=== PATIENT | female | born 1980 | race Caucasian/White ===

== ENCOUNTER 2017-03-30 19:52 | Emergency (ER) | payer BC ==
[2017-03-30 20:04] VITALS: BP 168/112
[2017-03-30] MEDS ORDERED: Ibuprofen 600 MG Tab PO ONE (20:27)
--- NOTE | 2017-03-30 20:39 | EDM.PDOC ---
ED HPI GENERAL MEDICAL PROBLEM - General Chief Complaint: Lower Extremity Injury/Pain Stated Complaint: POSS BROKEN ANKLE, [id number] Time Seen by Provider: 03/30/17 19:58 Source of Information: Reports: Patient History Limitations: Reports: No Limitations - History of Present Illness INITIAL COMMENTS - FREE TEXT/NARRATIVE: ED per wheelchair with c/o severe pain to left ankle, playing softball and triped running and rolled left ankle. Left Ankle Pain Score (Numeric/FACES): 9 - Related Data Allergies Allergy/AdvReac Type Severity Reaction Status Date / Time No Known Allergies Allergy Verified 03/30/17 20:01 Home Meds: Home Meds . 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 - Infectious Disease History Infectious Disease History: Reports: Chicken Pox - Past Surgical History Female Surgical History: Reports: Other (See Below) Social & Family History - Tobacco Use Smoking Status *Q: Current Every Day Smoker Years of Tobacco use: 17 Packs/Tins Daily: 0.5 Used Tobacco, but Quit: No Second Hand Smoke Exposure: Yes - Caffeine Use Caffeine Use: Reports: Coffee, Soda - Alcohol Use Days Per Week of Alcohol Use: 4 Number of Drinks Per Day: 1 Total Drinks Per Week: 4 Date of Last Drink: 03/29/17 - Recreational Drug Use Recreational Drug Use: No Review of Systems - Review of Systems Review Of Systems: ROS reveals no pertinent complaints other than HPI. ED EXAM, GENERAL - Physical Exam Exam: See Below Exam Limited By: No Limitations General Appearance: Alert, Moderate Distress Throat/Mouth: Normal Voice Respiratory/Chest: No Respiratory Distress Cardiovascular: Normal Peripheral Pulses, Regular Rate, Rhythm Extremities: Limited Range of Motion, Other (left lateral ankle swollen limited ROM. No bruising. Increased pain with minimal movment) Course - Vital Signs Last Recorded V/S: Last Vital Signs Temp 97.3 F 03/30/17 20:02 Pulse 98 03/30/17 20:02 Resp 22 H 03/30/17 20:02 BP 168/112 H 03/30/17 20:02 Pulse Ox 99 03/30/17 20:02 - Orders/Labs/Meds Orders: Active Orders 24 hr Category Date Time Status Ankle Min 3V Lt [CR] Urgent Exams 03/30/17 19:57 Taken Meds: Medications Discontinued Medications Generic Name Dose Route Start Last Admin Trade Name Aly PRN Reason Stop Dose Admin Ibuprofen 600 mg 03/30/17 20:27 03/30/17 20:33 Motrin PO 03/30/17 20:28 600 mg ONETIME ONE Administration - Radiology Interpretation Free Text/Narrative:: xray left ankle negative Departure - Departure Time of Disposition: 20:33 Disposition: Home, Self-Care 01 Condition: Good Clinical Impression: Left ankle sprain Qualifiers: Encounter type: initial encounter Involved ligament of ankle: other ligament Qualified Code(s): S93.492A - Sprain of other ligament of left ankle, initial encounter - Discharge Information Instructions: Ankle Sprain, [id number] Forms: ED Department Discharge Additional Instructions: ice rest elevate extremity cam walker crutches weight bearing as tolerated recheck in clinic in 2 weeks alternate tylenol 650mg and ibuprofen 600mg every 4-6 hours as needed for discomfort - My Orders Last 24 Hours: My Active Orders 03/30/17 19:57 Ankle Min 3V Lt [CR] Urgent - Assessment/Plan Last 24 Hours: My Active Orders 03/30/17 19:57 Ankle Min 3V Lt [CR] Urgent
== END 2017-03-30 20:42 | disposition home or self-care (01) ==
LOC: DL.ED 19:52
DX: S93.492A Sprain of other ligament of left ankle, initial encounter (principal); I10 Essential (primary) hypertension; F17.210 Nicotine dependence, cigarettes, uncomplicated; X58.XXXA Exposure to other specified factors, initial encounter; Y93.64 Activity, baseball
CPT/HCPCS: 73610; 99283; A9270; 99282

== ENCOUNTER 2019-09-15 15:33 | Emergency (ER) | payer BC ==
[2019-09-15] MEDS ORDERED: Sodium Chloride 0.9% 10 ML Syringe FLUSH PRN (16:13)
[2019-09-15] MEDS ORDERED: Ondansetron 4 MG/2 ML SDV IV ONE (16:14)
[2019-09-15] MEDS ORDERED: Morphine 4 MG/ML Syringe IVPUSH ONE (16:15)
[2019-09-15 16:58] LABS: ANION GAP 15.7; CHLORIDE,CL 99 mmol/L (101-111); SODIUM,NA 135 mmol/L (135-145)
--- NOTE | 2019-09-15 17:09 | CR ---
EXAMINATION: Chest 2V SEX: Female AGE: 39 years CLINICAL HISTORY: 39-year-old female emergency department complaining of cough (dyspnea). INTERPRETATION: 1. Normal cardiac silhouette and bony thorax. Left-sided aortic arch. 2. No pulmonary vascular congestion, cephalization of vascular flow, alveolar edema or dependent pleural fluid accumulation. 3. No lung mass, hilar lymphadenopathy or focal lobar consolidation i.e. no infiltrate, atelectasis or collapse. 4. No peribronchial "cuffing" or air trapping. 5. No pneumothorax or pneumomediastinum. No free subdiaphragmatic air. CONCLUSION: Negative exam.
[2019-09-15] MEDS ORDERED: metroNIDAZOLE 250 MG Tab PO ONE (18:15)
--- NOTE | 2019-09-15 18:39 | EDM.PDOC ---
"Scribed by Laruen Solomon 09/15/19 [id number] for Dilan Saldana MD ED HPI GENERAL MEDICAL PROBLEM - General Chief Complaint: Respiratory Problem Stated Complaint: RIGHT SIDE SHARP PAIN RIBS. HURTS BREATHING Time Seen by Provider: 09/15/19 15:54 Source of Information: Reports: Patient, RN, RN Notes Reviewed History Limitations: Reports: No Limitations - History of Present Illness INITIAL COMMENTS - FREE TEXT/NARRATIVE: Patient presents to ER from clinic sent by Dr. Hung. Dr Hung states that patient is having RUQ abdomen & Rt lower chest pain. States that this increases with breathing and coughing. Patient is having elevated blood pressure today of 166/108. She states that she has been having a cough since the weekend, (5 days) . Today is when she began having pain. She has had elevated blood pressure before but not this high. She has been having a lot of increased stress. She has had yellow sputum with the cough. Denies shortness of breath, fever, chills , N/V, diarrhea, constipation, or unexplained wt loss. She admits to mild dysuria. Onset: Gradual Onset Date: 09/15/19 Duration: Constant, Getting Worse Location: Reports: Chest, Abdomen (right upper quadrant), Back Quality: Reports: Ache Severity: Severe Improves with: Reports: None Worsens with: Reports: Breathing, Movement Associated Symptoms: Reports: No Other Symptoms Right Lower Chest Pain Score (Numeric/FACES): 8 - Related Data Allergies Allergy/AdvReac Type Severity Reaction Status Date / Time No Known Allergies Allergy Verified 09/15/19 15:51 Home Meds: Home Meds . 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 ED EXAM, GENERAL - Physical Exam Exam: See Below Exam Limited By: No Limitations General Appearance: Alert, WD/WN, No Apparent Distress Eye Exam: Bilateral Eye: Normal Inspection Nose: Normal Inspection Throat/Mouth: Normal Inspection Head: Atraumatic, Normocephalic Neck: Normal Inspection Respiratory/Chest: No Respiratory Distress, Lungs Clear, Normal Breath Sounds, No Accessory Muscle Use, Other (Tender at Rt anterior lower chest wall/ribs) Cardiovascular: Normal Peripheral Pulses, Regular Rate, Rhythm, No Edema, No Gallop, No JVD, No Murmur, No Rub GI/Abdominal: Normal Bowel Sounds, Soft, No Organomegaly, No Distention, No Abnormal Bruit, No Mass, Pelvis Stable, Tender (RUQ, and RLQ). No: Guarding, Rigid, Rebound (Female) Exam: Deferred Rectal (Female) Exam: Deferred Back Exam: Full Range of Motion, CVA Tenderness (R). No: CVA Tenderness (L), Paraspinal Tenderness, Vertebral Tenderness Extremities: Normal Inspection, Normal Range of Motion, Non-Tender, Normal Capillary Refill, No Pedal Edema Neurological: Alert, Oriented, CN II-XII Intact, Normal Cognition, Normal Gait, Normal Reflexes, No Motor/Sensory Deficits Psychiatric: Anxious Skin Exam: Warm, Dry, Intact, Normal Color, No Rash EKG INTERPRETATION EKG Date: 09/15/19 Time: 16:15 Rhythm: Other (sinus rhythm) Rate (Beats/Min): 92 Opal: Normal P-Wave: Present (biatrial abnormalities) QRS: Normal ST-T: Normal QT: Normal Course - Vital Signs Last Recorded V/S: Last Vital Signs Temp 98.7 F 09/15/19 15:44 Pulse 98 09/15/19 15:44 Resp 20 09/15/19 15:44 BP 159/114 H 09/15/19 15:44 Pulse Ox 99 09/15/19 15:44 - Orders/Labs/Meds Orders: Active Orders 24 hr Category Date Time Status EKG 12 Lead [EKG Documentation Completion] [RC] STAT Care 09/15/19 16:08 Active Peripheral IV Care [RC] . DIRECTED Care 09/15/19 16:14 Active Abdomen Pelvis wo Cont [CT] Stat Exams 09/15/19 17:32 Ordered CULTURE BLOOD [BC] Stat Lab 09/15/19 16:30 Received CULTURE BLOOD [BC] Stat Lab 09/15/19 17:00 Received CULTURE URINE [RM] Stat Lab 09/15/19 17:30 Received Sodium Chloride 0.9% [Saline Flush] Med 09/15/19 16:13 Active 10 ml FLUSH ASDIRECTED PRN cefTRIAXone [Rocephin] 2,000 mg Med 09/15/19 18:15 Active Sodium Chloride 0.9% [Normal Saline] 100 ml IV ONETIME Blood Culture x2 Reflex Set [OM.PC] Stat Oth 09/15/19 16:14 Ordered Peripheral IV Insertion Adult [OM.PC] Stat Oth 09/15/19 16:13 Ordered Medication Orders Ceftriaxone Sodium 2,000 mg/ (Sodium Chloride) 100 mls @ 200 mls/hr IV ONETIME ONE Stop: 09/15/19 18:44 Last Admin: 09/15/19 18:30 Dose: 200 mls/hr Sodium Chloride (Saline Flush) 10 ml FLUSH ASDIRECTED PRN PRN Reason: Keep Vein Open Last Admin: 09/15/19 16:42 Dose: 10 ml Labs: Laboratory Tests 09/15/19 09/15/19 09/15/19 Range/Units 16:30 16:30 16:30 WBC 6.7 (5.0-10.0) 10^3/uL RBC 4.48 (4.2-5.4) 10^6/uL Hgb 14.8 (12.0-16.0) g/dL Hct 42.9 (37.0-47.0) % MCV 95.8 (80-100) fL MCH 33.0 (27.0-34.0) pg MCHC 34.5 (33.0-35.0) g/dL Plt Count 248 (150-450) 10^3/uL Neut % (Auto) 57.1 (42.2-75.2) % Lymph % (Auto) 32.3 (20.5-50.1) % [place] % (Auto) 8.1 H (2-8) % Eos % (Auto) 2.1 (1.0-3.0) % Baso % (Auto) 0.4 (0.0-1.0) % D-Dimer, Quantitative < 100 (0-400) ng/mL Sodium 135 (135-145) mmol/L Potassium 3.7 (3.6-5.0) mmol/L Chloride 99 L (101-111) mmol/L Carbon Dioxide 24.0 (21.0-31.0) mmol/L Anion Gap 15.7 BUN 15 (7-18) mg/dL Creatinine 0.9 (0.6-1.3) mg/dL Est Cr Clr Drug Dosing 73.90 mL/min Estimated GFR (MDRD) > 60 BUN/Creatinine Ratio 16.66 Glucose 85 (74-105) mg/dL Lactic Acid (0.5-2.2) mmol/L Calcium 9.4 (8.4-10.2) mg/dl Total Bilirubin 1.0 (0.2-1.0) mg/dL AST 39 (10-42) IU/L ALT 47 (10-60) IU/L Alkaline Phosphatase 75 (42-121) IU/L Troponin I < 0.02 (0.00-0.02) ng/ml Total Protein 7.3 (6.7-8.2) g/dl Albumin 4.5 (3.2-5.5) g/dl Globulin 2.8 Albumin/Globulin Ratio 1.61 Urine Color (YELLOW) Urine Appearance (CLEAR) Urine pH (5.0-9.0) Ur Specific [place] (1.005-1.030) Urine Protein (NEGATIVE) Urine Glucose (UA) (NEGATIVE) Urine Ketones (NEGATIVE) Urine Occult Blood (NEGATIVE) Urine Nitrite (NEGATIVE) Urine Bilirubin (NEGATIVE) Urine Urobilinogen (0.2-1.0) mg/dL Ur Leukocyte Esterase (NEGATIVE) Urine RBC /HPF Urine WBC (0-5/HPF) /HPF Ur Epithelial Cells (NOT SEEN) /HPF Amorphous Sediment (NOT SEEN) /HPF Urine Bacteria (0-FEW/HPF) /HPF Urine Mucus (NOT SEEN) /LPF Urine HCG, Qual 09/15/19 09/15/19 09/15/19 Range/Units 16:30 17:30 17:30 WBC (5.0-10.0) 10^3/uL RBC (4.2-5.4) 10^6/uL Hgb (12.0-16.0) g/dL Hct (37.0-47.0) % MCV (80-100) fL MCH (27.0-34.0) pg MCHC (33.0-35.0) g/dL Plt Count (150-450) 10^3/uL Neut % (Auto) (42.2-75.2) % Lymph % (Auto) (20.5-50.1) % [place] % (Auto) (2-8) % Eos % (Auto) (1.0-3.0) % Baso % (Auto) (0.0-1.0) % D-Dimer, Quantitative (0-400) ng/mL Sodium (135-145) mmol/L Potassium (3.6-5.0) mmol/L Chloride (101-111) mmol/L Carbon Dioxide (21.0-31.0) mmol/L Anion Gap BUN (7-18) mg/dL Creatinine (0.6-1.3) mg/dL Est Cr Clr Drug Dosing mL/min Estimated GFR (MDRD) BUN/Creatinine Ratio Glucose (74-105) mg/dL Lactic Acid 0.8 (0.5-2.2) mmol/L Calcium (8.4-10.2) mg/dl Total Bilirubin (0.2-1.0) mg/dL AST (10-42) IU/L ALT (10-60) IU/L Alkaline Phosphatase (42-121) IU/L Troponin I (0.00-0.02) ng/ml Total Protein (6.7-8.2) g/dl Albumin (3.2-5.5) g/dl Globulin Albumin/Globulin Ratio Urine Color Maryse (YELLOW) Urine Appearance Turbid (CLEAR) Urine pH 5.5 (5.0-9.0) Ur Specific [place] >= 1.030 (1.005-1.030) Urine Protein Trace H (NEGATIVE) Urine Glucose (UA) Negative (NEGATIVE) Urine Ketones Trace H (NEGATIVE) Urine Occult Blood Trace-intact H (NEGATIVE) Urine Nitrite Positive H (NEGATIVE) Urine Bilirubin Small H (NEGATIVE) Urine Urobilinogen 0.2 (0.2-1.0) mg/dL Ur Leukocyte Esterase Negative (NEGATIVE) Urine RBC 0-5 /HPF Urine WBC 0-5 (0-5/HPF) /HPF Ur Epithelial Cells Moderate H (NOT SEEN) /HPF Amorphous Sediment Few (NOT SEEN) /HPF Urine Bacteria Moderate H (0-FEW/HPF) /HPF Urine Mucus Few H (NOT SEEN) /LPF Urine HCG, Qual Negative Meds: Medications Generic Name Dose Route Start Last Admin Trade Name Freq PRN Reason Stop Dose Admin Ceftriaxone Sodium 2,000 mg/ 100 mls @ 200 mls/hr 09/15/19 18:15 09/15/19 18: 30 Sodium Chloride IV 09/15/19 18:44 200 mls/hr ONETIME ONE Administration Sodium Chloride 10 ml 09/15/19 16:13 09/15/19 16:42 Saline Flush FLUSH 10 ml ASDIRECTED PRN Administration Keep Vein Open Discontinued Medications Generic Name Dose Route Start Last Admin Trade Name Freq PRN Reason Stop Dose Admin Metronidazole 500 mg 09/15/19 18:15 09/15/19 18:29 Metronidazole PO 09/15/19 18:16 500 mg ONETIME ONE Administration Morphine Sulfate 4 mg 09/15/19 16:15 09/15/19 16:35 Morphine IVPUSH 09/15/19 16:16 4 mg ONETIME ONE Administration Ondansetron HCl 4 mg 09/15/19 16:14 09/15/19 16:31 Zofran IV 09/15/19 16:15 4 mg ONETIME ONE Administration - Radiology Interpretation Free Text/Narrative:: Chest x-ray: Negative exam. See rad report. [facility] Final Radiology Report Call: [phone] assistance Online chat: [email or web address] Name: RHEA PARRA Age: 39Years F Date: 09/15/2019 SSN: -- : [id number] Study: CT ABDOMEN/PELVIS WO Requesting Physician: DILAN SALDANA Images: [id number] Addl Studies: Provided Clinical History: Contrast: Without Contrast Medium: Contrast Amount: Contrast Method: Page 1 of 2 PROCEDURE INFORMATION: Exam: CT Abdomen And Pelvis Without Contrast Exam date and time: 09/15/2019 5:59 PM Age: 39 years old Clinical history: Other: Ruq abd pain, RT flank pain, hematuria, ? kidney stone TECHNIQUE: Imaging protocol: Computed tomography of the abdomen and pelvis without contrast. Radiation optimization: All CT scans at this facility use at least one of these dose optimization techniques: automated exposure control; mA and/or kV adjustment per patient size (includes targeted exams where dose is matched to clinical indication); or iterative reconstruction. COMPARISON: [facility] + TRANSVAG 07/12/2013 5:06 PM FINDINGS: Liver: There is fatty infiltration along the falciform ligament. . No mass. Gallbladder and bile ducts: Normal. No calcified stones. No ductal dilation. Pancreas: Normal. No ductal dilation. Spleen: Normal. No splenomegaly. Adrenals: Normal. No mass. Kidneys and ureters: Normal. No hydronephrosis. Stomach and bowel: Unremarkable. No obstruction. No mucosal thickening. Appendix: No evidence of appendicitis. Intraperitoneal space: Unremarkable. Vasculature: Unremarkable. No abdominal aortic aneurysm. Lymph nodes: Unremarkable. No enlarged lymph nodes. Bladder: Unremarkable as visualized. RHEA PARRA | Final Radiology Report CONFIDENTIALITY STATEMENT This report is intended only for use by the referring physician, and only in accordance with law. If you received this in error, call [phone]. Page 2 of 2 Reproductive: There is a cystic lesion in the posterior right adnexa with possible thickened septae, measuring 5.5 x 5.4 cm. Bones/joints: Unremarkable. No acute fracture. Soft tissues: Unremarkable. IMPRESSION: Complex 5.5 cm right adnexal cystic lesion. Pelvic ultrasound is advised to further characterize. Considerations include complex cyst versus cystic neoplasm. Thank you for allowing us to participate in the care of your patient. Dictated and Authenticated by: Fredi Silva MD 09/15/2019 6:23 PM Central Time ([place] & [place]) - Re-Assessments/Exams Free Text/Narrative Re-Assessment/Exam: 09/15/19 18:44 Pt informed of the exam findings, lab results, and imaging reports. Pt prefers to f/u with Dr. Bryan. I called Dr. Bryan to review the case and CT Abd/ Pelvis report. Dr. Bryan agrees to f/u in clinic next week with the pt to work up the right adnexal mass. Pt agrees to call Dr. Interiano's nurse Wednesday morning, 09/18/19 to schedule the appointment. Departure - Departure Time of Disposition: 18:52 Disposition: Home, Self-Care 01 Condition: Good Clinical Impression: Adnexal cyst, Bacterial vaginosis UTI (urinary tract infection) Qualifiers: Urinary tract infection type: acute pyelonephritis Qualified Code(s): N10 - Acute pyelonephritis - Discharge Information *PRESCRIPTION DRUG MONITORING PROGRAM REVIEWED*: No *COPY OF PRESCRIPTION DRUG MONITORING REPORT IN PATIENT CHILO: No Instructions: Urinary Tract Infection, Adult, Urinary Tract Infection, Adult, [id number], Ovarian Cyst, [id number] Forms: ED Department Discharge Additional Instructions: Rx: Flagyl (Metronidazole) 500mg *Do not consume any alcohol containing products while taking this medication. Rx: Cipro 500mg Rx: Hydrocodone APAP 5mg/325mg *Do not drive while under the influence of this medication. Rx: Zofran 4mg Call Dr. Bryan's nurse Wednesday morning between 8:00AM and 8:30AM to schedule an appointment. Return to ER if worse at any time. - My Orders Last 24 Hours: My Active Orders 09/15/19 16:08 EKG 12 Lead [EKG Documentation Completion] [RC] STAT 09/15/19 16:13 Sodium Chloride 0.9% [Saline Flush] 10 ml FLUSH ASDIRECTED PRN Peripheral IV Insertion Adult [OM.PC] Stat 09/15/19 16:14 Peripheral IV Care [RC] . DIRECTED Blood Culture x2 Reflex Set [OM.PC] Stat 09/15/19 16:30 CULTURE BLOOD [BC] Stat 09/15/19 17:00 CULTURE BLOOD [BC] Stat 09/15/19 17:30 CULTURE URINE [RM] Stat 09/15/19 17:32 Abdomen Pelvis wo Cont [CT] Stat 09/15/19 18:15 cefTRIAXone [Rocephin] 2,000 mg Sodium Chloride 0.9% [Normal Saline] 100 ml IV ONETIME - Assessment/Plan Last 24 Hours: My Active Orders 09/15/19 16:08 EKG 12 Lead [EKG Documentation Completion] [RC] STAT 09/15/19 16:13 Sodium Chloride 0.9% [Saline Flush] 10 ml FLUSH ASDIRECTED PRN Peripheral IV Insertion Adult [OM.PC] Stat 09/15/19 16:14 Peripheral IV Care [RC] . DIRECTED Blood Culture x2 Reflex Set [OM.PC] Stat 09/15/19 16:30 CULTURE BLOOD [BC] Stat 09/15/19 17:00 CULTURE BLOOD [BC] Stat 09/15/19 17:30 CULTURE URINE [RM] Stat 09/15/19 17:32 Abdomen Pelvis wo Cont [CT] Stat 09/15/19 18:15 cefTRIAXone [Rocephin] 2,000 mg Sodium Chloride 0.9% [Normal Saline] 100 ml IV ONETIME I have read and agree with the documentation that has been completed regarding this visit. By signing this record, I attest that the documentation was completed in my physical presence and is an accurate record of the encounter."
[2019-09-15 19:27] VITALS: BP 146/98; PULSE 91
== END 2019-09-15 19:28 | disposition home or self-care (01) ==
LOC: DL.ED 15:33
DX: N83.8 Other noninflammatory disorders of ovary, fallopian tube and broad ligament (principal); N10 Acute pyelonephritis; N76.0 Acute vaginitis; I10 Essential (primary) hypertension
CPT/HCPCS: 36415; 71046; 74176; 80053; 81001; 81025; 83605; 84484; 85025; 85379; 87040; 87086; 87088; 87186; 93005; 96365; 96375; 99285; A9270; J0696; J2270; J2405; J7050

== ENCOUNTER 2022-09-08 15:16 | Emergency (ER) | payer SELFPAY ==
[2022-09-08 15:34] VITALS: PULSE 112
[2022-09-08] MEDS ORDERED: Penicillin G Benzathine/Procaine 600-600 1.2 Millunits/2 ML Syringe IM ONE (15:52)
[2022-09-08] MEDS ORDERED: Lisinopril 20 MG Tab PO ONE (15:52)
[2022-09-08] MEDS ORDERED: Oxymetazoline 0.05% Nasal Spray 30 ML Bottle NAS ONE (15:52)
[2022-09-08 16:17] VITALS: BP 206/144
[2022-09-08 16:27] LABS: CORONAVIRUS COVID-19 NAA NEGATIVE (NEGATIVE)
== END 2022-09-08 17:21 | disposition left against medical advice (07) ==
LOC: DL.ED 15:16
DX: R51.9 Headache, unspecified (principal); J02.9 Acute pharyngitis, unspecified; I10 Essential (primary) hypertension; Z20.822 Contact with and (suspected) exposure to COVID-19
CPT/HCPCS: 0240U; 96372; 99283; A9270; J0558

== ENCOUNTER 2024-03-07 18:20 | Emergency (ER) | payer SELFPAY ==
[2024-03-07 18:36] VITALS: BP 178/125; PULSE 111
[2024-03-07] MEDS: Take Home: Clindamycin HCl 150 MG, 12 Cap Pack PO ONE (19:05)
== END 2024-03-07 19:07 | disposition home or self-care (01) ==
LOC: DL.ED 18:20
DX: L03.116 Cellulitis of left lower limb (principal); I10 Essential (primary) hypertension; Z90.710 Acquired absence of both cervix and uterus
CPT/HCPCS: 99283; A9270-GY